=== PATIENT | male | born 2000 | race Hispanic/Latino ===

== ENCOUNTER 2022-07-21 14:45 | Outpatient (CLI) | payer OTHER | END 2022-07-21 14:46 | disposition home or self-care (01) | LOC: BICRAD 14:45 | PROVIDERS: ATTEND Nurse Practitioner Family | DX: R07.9 Chest pain, unspecified (principal) | CPT/HCPCS: 71046 ==

== ENCOUNTER 2022-07-24 20:27 | Emergency (ER) ==
[2022-07-25 01:04] LABS: #Neutrophils 5.3 thou/uL (1.40-6.50); %Basophils 0.4 % (0.0-1.0); %Eosinophils 0.7 % (0.0-10.0); %Lymphocytes 34.2 % (28.0-48.0); %Monocytes 8.8 % (0.0-4.0); %Neutrophils 55.9 % (31.0-61.0); Hemoglobin 14.6 g/dL (14.0-18.0); Mean Corpuscular HGB CONC 33.3 g/dL (32.0-36.0); Mean Corpuscular Hemoglobin 29.5 pg (25.0-35.0); Mean Corpuscular Volume 88.6 fL (78.0-98.0); Mean Platelet Volume 7.7 fL (7.4-10.4); Platelet Count 198 thou/uL (130-400); RBC Distribution Width 12.2 % (11.5-14.5); Red Blood Cell (RBC) Count 4.93 mill/uL (4.00-5.20); White Blood Cell (WBC) Count 9.5 thou/uL (4.8-10.8)
[2022-07-25 01:05] LABS: #Eosinphils 0.1 thou/uL (0.0-0.7); #Lymphocytes 3.3 thou/uL (1.20-3.40); #Monocytes 0.8 thou/uL (0.11-0.59)
[2022-07-25 01:22] LABS: ALT (SGPT) 11 U/L (8-55); AST (SGOT) 14 U/L (5-34); Albumin 4.6 g/dL (3.5-5.0); Alkaline Phosphatase 62 U/L (50-130); Anion Gap 12 mmol/L (10-20); BUN (Urea Nitrogen) 14 mg/dL (8.9-20.6); Bilirubin, Total 0.7 mg/dL (0.2-1.2); Calc. Creatinine Clearance 0 mL/min (70-130); Calcium 9.4 mg/dL (7.8-10.44); Carbon Dioxide 24 mmol/L (22-29); Chloride 108 mmol/L (98-107); Estimated GFR 119; Globulin 2.5 g/dL (2.4-3.5); Glucose 88 mg/dL (70-105); Magnesium 2.2 mg/dL (1.7-2.2); Potassium 3.8 mmol/L (3.5-5.1); Protein, Total 7.1 g/dL (6.0-8.3); Sodium 140 mmol/L (136-145)
== END 2022-07-25 02:06 | disposition home or self-care (01) ==
LOC: ERS 20:27
DX: R00.2 Palpitations (principal); R07.2 Precordial pain; F17.210 Nicotine dependence, cigarettes, uncomplicated
CPT/HCPCS: 36415; 71045; 80053; 83735; 84443; 84484; 85025; 93005

== ENCOUNTER 2023-12-09 16:17 | Emergency (ER) | payer OTHER ==
[2023-12-09] MEDS ORDERED: Amoxicillin/Potassium Clav 875 MG TAB ONE (17:30)
[2023-12-09] MEDS ORDERED: Ibuprofen 200 MG TAB ONE (17:31)
[2023-12-09] MEDS ORDERED: Rabies Vaccine Human 2.5 UNITS VIAL ONE (17:31)
[2023-12-09] MEDS ORDERED: Rabies Immune Globulin/PF 300 UNITS/ML VIAL ONE (17:31)
== END 2023-12-09 19:10 | disposition home or self-care (01) ==
LOC: ERS 16:17
DX: S51.852A Open bite of left forearm, initial encounter (principal); S51.832A Puncture wound without foreign body of left forearm, initial encounter; F17.210 Nicotine dependence, cigarettes, uncomplicated; W54.0XXA Bitten by dog, initial encounter; Z23 Encounter for immunization
CPT/HCPCS: 90375; 90471; 90472; 90675

== ENCOUNTER → 2023-12-12 | Day surgery (SDC) | payer OTHER ==
[~2023-12-12] MED LIST: Rabies Vaccine Human 2.5 UNITS VIAL ONE
== END ==
LOC: ER/OP 21:25
PROVIDERS: ATTEND Emergency Medicine
DX: Z23 Encounter for immunization (principal)
CPT/HCPCS: 90675

== ENCOUNTER → 2023-12-16 | Day surgery (SDC) | payer OTHER | LOC: ER/OP 22:48 | PROVIDERS: ATTEND Student in an Organized Health Care Education/Training Program | DX: Z23 Encounter for immunization (principal) | CPT/HCPCS: 90675 ==

== ENCOUNTER 2024-09-22 19:18 | Emergency (ER) | payer OTHER ==
[2024-09-23] MEDS ORDERED: Ketorolac Tromethamine 30 MG (1 mL) VIAL ONE (00:38)
== END 2024-09-23 01:24 | disposition home or self-care (01) ==
LOC: ERS 19:18
DX: M94.0 Chondrocostal junction syndrome [Tietze] (principal); F41.9 Anxiety disorder, unspecified; F17.210 Nicotine dependence, cigarettes, uncomplicated
CPT/HCPCS: 71046; 87428; 93005; 96372; J1885